=== PATIENT | female | born 1950 | race African-American/Black ===

== ENCOUNTER 2018-05-29 09:55 | Emergency (ER) | payer OTHER ==
[2018-05-29 10:59] LABS: ADD MAN DIFF? NO
[2018-05-29 11:01] LABS: BASOPHILS % 0.2 % (0.0-2.0); EOSINOPHILS # 0.1 10^3/ul (0.0-0.5); HEMATOCRIT 29.1 % (37.0-47.0); HEMOGLOBIN 9.9 g/dl (12.0-16.0); LYMPHOCYTES % 15.7 % (15.0-51.0); MEAN CORPUSCULAR HEMOGLOBIN 28.4 pg (29.0-33.0); MEAN CORPUSCULAR VOLUME 83.6 fl (82.0-101.0); MEAN PLATELET VOLUME 10.4 fl (7.4-10.4); MONOCYTE # 0.4 10^3/ul (0.3-0.9); MONOCYTES % 6.6 % (0.0-11.0); NEUTROPHIL # 4.6 10^3/ul (1.6-7.5); NEUTROPHILS % 76.3 % (39.0-77.0); PLATELET COUNT 243 10^3/UL (140-415); RED BLOOD COUNT 3.48 10^6/ul (4.20-5.40); RED CELL DISTRIBUTION WIDTH 13.3 % (11.5-14.5)
[2018-05-29 11:01] LABS: WHITE BLOOD COUNT 6.1 10^3/ul (4.8-10.8)
[2018-05-29] MEDS: morphine 4 MG/ML VIAL IV (11:12)
[2018-05-29] MEDS: ASPIRIN 325 MG TAB PO (11:12)
[2018-05-29] MEDS: ONDANSETRON 4 MG INJ IV ×2 (11:12→18:32)
[2018-05-29] MEDS: NITROGLYCERIN 2% 1 GM OINT PKT TD (11:13)
[2018-05-29 12:03] LABS: ANION GAP 14 (5-13); BLOOD UREA NITROGEN 45 mg/dl (7-20); CALCIUM 8.9 mg/dl (8.4-10.2); CARBON DIOXIDE 20 mmol/L (21-31); CHLORIDE 100 mmol/L (97-110); CREATININE 3.68 mg/dl (0.44-1.00); Estimated GFR 15 mL/min (>60); GLUCOSE 105 mg/dl (70-220); POTASSIUM 4.2 mmol/L (3.5-5.1); SODIUM 134 mmol/L (135-144)
[2018-05-29 12:16] LABS: TROPONIN-I < 0.012 ng/ml (0.000-0.120)
[2018-05-29] MEDS: hydrALAzine 20 MG INJ IV (21:09)
== END 2018-05-29 21:28 | disposition short-term general hospital (02) ==
LOC: E/R 09:55
DX: R07.89 Other chest pain (principal); I10 Essential (primary) hypertension
CPT/HCPCS: 36415; 71045; 80048; 84484; 85025; 93005; 96374; 96375; 96376; 99285-25